=== PATIENT | female | born 1995 | race Two or more races ===

== ENCOUNTER 2018-10-12 02:05 | Emergency (ER) | payer MEDICAID, OTHER ==
[~2018-10-12] VITALS: Ht 162.6 cm; Wt 61.2 kg
[2018-10-12 02:50] VITALS: BP 104/72
[2018-10-12 03:00] VITALS: BP 116/74
[2018-10-12] MEDS ORDERED: LORazepam Inj 2mg/ml 1ml IM ONE (03:00)
[2018-10-12] MEDS ORDERED: Haloperidol 5mg/ml Inj IM ONE (03:00)
[2018-10-12] MEDS ORDERED: DiphenhydrAMINE 50mg/ml Inj IM ONE (03:00)
[2018-10-12 04:06] LABS: BASOPHILS % (AUTO) 0.5 % (0.0-2.0); EOSINOPHILS % (AUTO) 0.3 % (0.0-3.0); HEMATOCRIT 38.5 % (37.0-47.0); HEMOGLOBIN 13.2 G/DL (12.0-16.0); LYMPHOCYTES % (AUTO) 26.9 % (20.0-45.0); MEAN CORPUSCULAR VOLUME 94 FL (80-99); MONOCYTES % (AUTO) 7.2 % (1.0-10.0); NEUTROPHILS % (AUTO) 65.1 % (45.0-75.0); PLATELET COUNT 215 K/UL (150-450); RED BLOOD COUNT 4.09 M/UL (4.20-5.40); WHITE BLOOD COUNT 8.6 K/UL (4.8-10.8)
[2018-10-12 04:28] LABS: ANION GAP 17 mmol/L (5-15); BLOOD UREA NITROGEN 11 mg/dL (7-18); CALCIUM 8.6 MG/DL (8.5-10.1); CARBON DIOXIDE 19 MMOL/L (21-32); CHLORIDE 108 MMOL/L (98-107); CREATININE 0.8 MG/DL (0.55-1.30); POTASSIUM 3.7 MMOL/L (3.5-5.1); SODIUM 144 MMOL/L (136-145)
[2018-10-12 04:33] LABS: ALANINE AMINOTRANSFERASE 17 U/L (12-78); ALBUMIN 4.1 G/DL (3.4-5.0); ALKALINE PHOSPHATASE 72 U/L (46-116); ASPARTATE AMINO TRANSFERASE 25 U/L (15-37); BILIRUBIN,TOTAL 0.3 MG/DL (0.2-1.0)
[2018-10-12 04:48] LABS: APPEARANCE,URINE CLEAR; BILIRUBIN, URINE NEGATIVE (NEGATIVE); COLOR,URINE PALE YELLOW; GLUCOSE, URINE (UA) NEGATIVE (NEGATIVE); KETONES,URINE NEGATIVE (NEGATIVE); LEUKOCYTE ESTERASE ,URINE 1+ (NEGATIVE); NITRITE,URINE NEGATIVE (NEGATIVE); PH,URINE 5 (4.5-8.0); PROTEIN,URINE NEGATIVE (NEGATIVE); UROBILINOGEN,URINE NORMAL MG/DL (0.0-1.0)
[2018-10-12 06:00] VITALS: BP 119/72
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
--- NOTE | 2018-10-12 06:44 | Emergency Room Report ---
History of Present Illness General Chief Complaint: Behavioral Complaint Source: Patient Present Illness Allergies: Coded Allergies: No Known Allergies (Unverified , 10/12/18) Patient History Last Menstrual Period: 09/22/2018 Now: No Nursing Documentation-[facility] Past Medical History: No Stated History Physical Exam Vital Signs Date Time Temp Pulse Resp B/P (MAP) Pulse Ox O2 Delivery O2 Flow Rate FiO2 10/12/18 02:07 97.7 100 18 104/72 98 Room Air Medical Decision Making Restraint Attestation I, Francis Lai MD, have personally evaluated this patient. Laboratory tests have been reviewed and addressed accordingly. The patient is deemed to present a danger to themselves and/or others. This is based on the exam, history (provided by patient, EMS/[facility] and/or family) and observed or reported behavior. Attempts for non-invasive measures have been considered and/or attempted, however, have been futile. It is in the best interest of the nursing staff, the patient, and others involved in this patient's care that behavioral restraints be applied. Patient evaluation reveals the following: Diagnostic Impression: Primary Impression: Behavioral disorder Additional Impression: Alcohol intoxication Qualified Codes: F10.929 - Alcohol use, unspecified with intoxication, unspecified Last Vital Signs Date Time Temp Pulse Resp B/P (MAP) Pulse Ox O2 Delivery O2 Flow Rate FiO2 10/12/18 06:18 72 18 Room Air 10/12/18 06:00 97.9 119/72 98 Status: improved Disposition: XFER TO PSYCH HOSP/UNIT Condition: Serious Scripts No Active Prescriptions or Reported Meds Referrals: [facility] (PCP) Francis Lai MD Oct 12, 2018 06:44
[2018-10-12 08:06] VITALS: BP 125/71
[2018-10-12 10:00] VITALS: BP 120/82
[2018-10-12 12:00] VITALS: BP 96/60
== END 2018-10-12 12:05 ==
LOC: EDBD 02:05 → EMR 03:42
DX: F91.9 Conduct disorder, unspecified (principal); F10.929 Alcohol use, unspecified with intoxication, unspecified
CPT/HCPCS: 36415; 80053; 80307; 80329; 81003; 81025; 85025; 96360; 96372; 99284; J1200; J1630